=== PATIENT | female | born 1980 ===

== ENCOUNTER → 2021-04-01 14:58 | Outpatient (CLI) | payer OTHER, SELFPAY ==
[2021-04-01 15:36] LABS: COVID19 -Nasal RAPID Negative (Negative)
== END ==
PROVIDERS: Visit Provider Physician Assistant
DX: J02.9 Acute pharyngitis, unspecified (principal); R05 Cough; Z20.822 Contact with and (suspected) exposure to COVID-19
CPT/HCPCS: 87070; 87635